=== PATIENT | male | born 1970 | race Caucasian/White ===

== ENCOUNTER 2024-05-14 19:29 | Inpatient (IN) | payer BC, SELFPAY ==
[2024-05-14] VITALS (10 sets, daily range): BP systolic 143–196; BP diastolic 78–112; PULSE 59–89; RESP 18–20; TEMP 36.9; O2SAT 97–100; BMI 38.2
--- NOTE | ~2024-05-14 | XR_ITS ---
CHEST RADIOGRAPH, PA AND LATERAL CLINICAL HISTORY: chest pain . COMPARISON: None available TECHNIQUE: PA and lateral views of the chest. FINDINGS The cardiomediastinal silhouette is unremarkable. The lungs are clear. Visualized osseous structures and soft tissues are unremarkable. IMPRESSION: No focal infiltrate or effusion. Reviewed, dictated and finalized at location A.
--- NOTE | 2024-05-14 19:38 | ECG_ITS ---
Test Date: 2024-05-14 19:35:04 Measurements Intervals [place] Rate: 76 P: 20 MN: 164 QRS: -32 QRSD: 98 T: 52 QT: 367 QTc: 413 Interpretive Statements SINUS RHYTHM LEFT AXIS DEVIATION [QRS AXIS < -30] MODERATE ST DEPRESSION [0.05+ mV ST DEPRESSION] ABNORMAL ECG No previous ECG available for comparison Electronically Signed On 05-15-2024 12:22:13 CDT by Shaheen Bobby M.D.
[2024-05-14 19:46] LABS: Basophils Absolute Auto 0.1 K/mm3 (0.0-0.1); Basophils Percent Auto 0.8 % (0.2-1.2); Eosinophils Absolute Auto 0.2 K/mm3 (0-0.3); Eosinophils Percent Auto 1.8 % (0-4.4); Hematocrit 47.8 % (42.0-52.0); Hemoglobin 16.3 g/dL (14.0-18.0); Immature Granulocyte Absolute 0.02 K/mm3 (0.00-0.031); Immature Granulocyte Percent A 0.2 % (0-0.5); Lymphocytes Absolute Auto 2.64 K/mm3 (0.9-3.2); Lymphocytes Percent Auto 30.9 % (18.3-44.2); Mean Corpuscular HGB Conc 34.1 g/dl (32-36); Mean Corpuscular Hemoglobin 27.6 pg (26-34); Monocytes Absolute Auto 0.7 K/mm3 (0.1-0.6); Monocytes Percent Auto 7.6 % (2.6-8.5); Neutrophils Percent Auto 58.7 % (45.5-73.1); Platelet Count Result 211 k/mm3 (150-375); Red Cell Distribution Width 12.1 % (11.5-14.5); White Blood Count 8.5 K/mm3 (4.5-10.0)
[2024-05-14 19:58] LABS: Prothrombin Time 13.3 Seconds (11.1-14.7)
[2024-05-14 19:59] LABS: Partial Thromboplastin Time 26.1 Seconds (22.3-36.8)
[2024-05-14 20:00] LABS: Alanine Aminotransferase 38 U/L (6-50); Albumin Level 4.6 g/dL (3.5-5.1); Alkaline Phosphatase 80 U/L (38-126); Anion Gap 14 mmol/L (4-12); Aspartate Amino Transferase 48 U/L (17-59); Bilirubin,Total 1.1 mg/dL (0.2-1.3); Blood Urea Nitrogen 23 mg/dL (9-20); Calcium 9.9 mg/dL (8.4-10.2); Carbon Dioxide 21 mmol/L (22-30); Chloride 102 mmol/L (98-107); Estimated CRCL calculation 91 ml/min; Estimated Glomerular Filt Rate > 60; Glucose 152 mg/dL (65-110); Lipase 249 U/L (23-300); Sodium 137 mmol/L (137-145)
--- NOTE | 2024-05-14 20:14 | ED.GENADULT ---
HPI - General Adult General Chief complaint: Chest Pain Stated complaint: CHEST PAIN, HTN Time Seen by Provider: 05/14/24 19:41 History of Present Illness HPI narrative: Patient is a 53-year-old gentleman presents emergency department with chief complaint of chest discomfort. 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 The patient reports no prior history of cardiac disease reports no family history for cardiac disease Related Data Home Medications ?Medication ?Instructions ?Recorded ?Confirmed ?Last Taken ?Type atorvastatin 20 mg tablet mg 05/14/24 Unknown History baclofen 10 mg tablet mg 05/14/24 Unknown History empagliflozin 25 mg tablet mg 05/14/24 Unknown History (Jardiance) losartan 100 mg tablet mg 05/14/24 Unknown History semaglutide 0.25 mg or 0.5 mg (2 mg subcut 05/14/24 Unknown History mg/3 mL) subcutaneous pen injector (Ozempic) Allergies Allergy/AdvReac Type Severity Reaction Status Date / Time SNOW Inhibitors AdvReac Unknown Unknown Verified 05/14/24 20:24 Review of Systems Review of Systems: A 10 system review of systems was completed on the patient and is negative except for what is stated in the HPI. Nursing and ancillary documentation was reviewed. [facility] Past Medical History Medical History (Updated 05/14/24 @ 21:46 by Tami Pritchett DO) Type 2 diabetes mellitus Dyslipidemia Exam Narrative: GENERAL: Well-appearing, well-nourished, and in no acute distress. HEAD: Normocephalic, atraumatic. EYES: PERRLA and EOMI. ENT: Nares clear, no rhinorrhea or epistaxis. Mucous membranes moist. NECK: Supple. CHEST: Clear to auscultation. No respiratory distress. HEART: Regular rate and rhythm. No murmur heard. Normal peripheral pulses. ABDOMEN: Soft, nontender, nondistended, normal active bowel sounds. EXTREMITIES: Normal range of motion. No edema. SKIN: Warm, dry, no rash. NEURO: No focal deficits. Alert and oriented x3. PSYCH: Normal mood and affect. Course Vital Signs Vital signs: Vital Signs Temperature 36.9 C 05/14/24 19:31 Pulse Rate 89 05/14/24 19:31 Respiratory Rate 18 05/14/24 19:31 Blood Pressure 196/112 H 05/14/24 19:31 Pulse Oximetry 98 05/14/24 19:31 Oxygen Delivery Room Air 05/14/24 19:31 Temperature 36.9 C 05/14/24 19:31 Pulse Rate 83 05/14/24 20:51 Respiratory Rate 20 05/14/24 20:51 Blood Pressure 181/98 H 05/14/24 20:51 Pulse Oximetry 98 05/14/24 20:53 Oxygen Delivery Room Air 05/14/24 20:53 Medical Decision Making MDM Narrative Medical decision making narrative: Differential diagnosis includes ACS, noncardiac chest pain, electrolyte abnormality, esophageal spasm, EKG showed some nonspecific changes Initial troponin was 1.990 The patient was given aspirin Prior to arrival by EMS and the patient also was started on heparin drip Vital Signs Vital Signs: Vital Signs Temperature 36.9 C 05/14/24 19:31 Pulse Rate 89 05/14/24 19:31 Respiratory Rate 18 05/14/24 19:31 Blood Pressure 196/112 H 05/14/24 19:31 Pulse Oximetry 98 05/14/24 19:31 Oxygen Delivery Room Air 05/14/24 19:31 Temperature 36.9 C 05/14/24 19:31 Pulse Rate 83 05/14/24 20:51 Respiratory Rate 20 05/14/24 20:51 Blood Pressure 181/98 H 05/14/24 20:51 Pulse Oximetry 98 05/14/24 20:53 Oxygen Delivery Room Air 05/14/24 20:53 Lab Data 05/14/24 19:40 05/14/24 19:40 Labs: Lab Results 05/14/24 Range/Units 19:40 WBC 8.5 (4.5-10.0) K/mm3 RBC 5.90 (4.6-6.20) M/mm3 Hgb 16.3 (14.0-18.0) g/dL Hct 47.8 (42.0-52.0) % MCV 81.0 (80-100) fl MCH 27.6 (26-34) pg MCHC 34.1 (32-36) g/dl RDW 12.1 (11.5-14.5) % Plt Count 211 (150-375) k/mm3 MPV 10.0 (7.4-10.4) fl Immature Gran % (Auto) 0.2 (0-0.5) % Neut % (Auto) 58.7 (45.5-73.1) % Lymph % (Auto) 30.9 (18.3-44.2) % [place] % (Auto) 7.6 (2.6-8.5) % Eos % (Auto) 1.8 (0-4.4) % Baso % (Auto) 0.8 (0.2-1.2) % Lymph # (Auto) 2.64 (0.9-3.2) K/mm3 [place] # (Auto) 0.7 H (0.1-0.6) K/mm3 Eos # (Auto) 0.2 (0-0.3) K/mm3 Baso # (Auto) 0.1 (0.0-0.1) K/mm3 Abs Immat Gran (auto) 0.02 (0.00-0.031) K/mm3 Absolute Neuts (auto) 5.0 (1.3-6.7) K/mm3 Absolute Nucleated RBC 0.000 (0.0-0.012) K/mm3 Nucleated RBC % 0.0 (0.0-0.2) % PT 13.3 (11.1-14.7) Seconds INR 1.0 APTT 26.1 (22.3-36.8) Seconds Sodium 137 (137-145) mmol/L Potassium 4.0 (3.4-5.0) mmol/L Chloride 102 (98-107) mmol/L Carbon Dioxide 21 L (22-30) mmol/L Anion Gap 14 H (4-12) mmol/L BUN 23 H (9-20) mg/dL Creatinine 1.19 (0.7-1.3) mg/dL Estim Creat Clear Calc 91 ml/min Estimated GFR > 60 (59 - ) Glucose 152 H (65-110) mg/dL Calcium 9.9 (8.4-10.2) mg/dL Total Bilirubin 1.1 (0.2-1.3) mg/dL AST 48 (17-59) U/L ALT 38 (6-50) U/L Alkaline Phosphatase 80 (38-126) U/L Troponin I 1.990 H* (0.000-0.034) ng/mL Total Protein 8.0 (6.3-8.2) g/dL Albumin 4.6 (3.5-5.1) g/dL Lipase 249 (23-300) U/L Critical Care Time Critical Care Time Critical Care Time: Yes Total Critical Care Time: 35 Discharge Plan Discharge Clinical Impression: Non-ST elevation SC (NSTEMI) Patient Disposition: Still a Patient Condition: Stable Patient Language: Swedish Prescriptions: No Action atorvastatin 20 mg tablet baclofen 10 mg tablet losartan 100 mg tablet Jardiance 25 mg tablet Ozempic 0.25 mg or 0.5 mg (2 mg/3 mL) pen injector SUBCUT Time of Disposition: 20:20
[2024-05-14] MEDS: HEPARIN SOD/D5W 100 UNITS/ML 25,000 UNITS/250 ML BAG 10 UNITS IV CONT (20:41)
[2024-05-14] MEDS: HEPARIN SODIUM 5,000 UNITS/ML VIAL 4000 UNITS IV PUSH (20:43)
[2024-05-14] MEDS: NITROGLYCERIN SL 0.4 MG TABLET SUBLINGUAL (20:46)
[2024-05-14] MEDS: MORPHINE SULFATE (*CRX) 4 MG/ML INJ IV PUSH (21:39)
[2024-05-14] MEDS: NITROGLYCERIN OINTMENT 1 INCH DOSE TRANSDERM (21:42)
--- NOTE | 2024-05-14 23:49 | ADMGEN ---
This patient, Dickson Barrett, was admitted to IMU Room 214-01. Patient/family oriented to hospital policies and general routines including ID bracelet, bed and alarms, visiting hours, pain management, procedures, bathroom and other care routines, personal items, smoking policy, room service/diet, and visiting hours. Information on how to activate the Rapid Response Team has been discussed. Patient/Family are encouraged to report perceived risks to care and to ask questions if they do not understand what they are told or what they should do.
[2024-05-15] VITALS (35 sets, daily range): BP systolic 106–181; BP diastolic 64–95; PULSE 60–97; RESP 13–20; TEMP 36.6–37; O2SAT 95–100
--- NOTE | 2024-05-15 | ECHO_ITS ---
Patient Info Name: Dickson Barrett Age: 53 years : 1970 Gender: Male Ht: 72 in Wt: 282 lbs BSA: 2.60 m2 HR: 66 bpm BP: 152 / 85 mmHg Heart Rhythm: Sinus Rhythm Technical Quality: Fair Exam Date: 05/15/2024 3:16 PM Exam Location: Echo Lab Patient Status: Inpatient Admit Date: 05/14/2024 Staff Ordering Physician: Shaheen Bobby MD Chiropractic Physician: Ivory Evans RDCS Attending Provider: Tami Pritchett DO Referring Physician: Kanu AHMADI; Exam Type: CA echo dop color flow w con Study Info Indications - Non-STEMI Complete two-dimensional, color flow and Doppler transthoracic echocardiogram is performed with contrast to opacify the left ventricle and to improve the deliniation of the left ventricle endocardial borders. Contrast/Agitated Saline Contrast/Ag. Saline: Definity Amount: 2.00 ml Administered By: Ivory Evans RDCS Existing IV Access: Yes IV Access Condition: patent with no signs of infiltration Summary 1. The left ventricle is normal in size and systolic function. The left ventricular ejection fraction is visually estimated to be 60-65%. The basal inferolateral wall is mildly hypokinetic. 2. The right ventricle is normal in size and systolic function. 3. There are no significant valvular abnormalities. Left Ventricle The left ventricle is normal in size and systolic function. The left ventricular ejection fraction is visually estimated to be 60-65%. The basal inferolateral wall is mildly hypokinetic. Right Ventricle The right ventricle is normal in size and systolic function. Left Atria The left atrium is normal size. Right Atria The right atrium is normal size. Atrial Septum The atrial septum is not well visualized. Aortic Valve The aortic valve is trileaflet and opens well. There is no aortic regurgitation. Pulmonic Valve The pulmonic valve is not visualized. Mitral Valve The mitral valve is normal. There is no mitral regurgitation. Tricuspid Valve The tricuspid is grossly normal. There is trace tricuspid regurgitation. Pericardium/Pleural Pericardium is normal in appearance with no evidence for significant pericardial effusion. Inferior Vena Cava Inferior vena cava is not well visualized. Aorta The aortic root at the level of the sinus of Valsalva measures 3.3 cm in diameter. Left Ventricular Outflow Tract Name Value Normal LVOT 2D LVOT Diameter 2.37 cm LVOT Doppler LVOT Peak Gradient 4 mmHg LVOT Mean Gradient 2 mmHg LVOT VTI 20.02 cm LVOT VTI/AV VTI Ratio 0.82 LVOT Stroke Volume 88.16 ml LVOT CO 5.86 l/min LVOT CI 2.26 L/min/m2 Pulmonic Valve Name Value Normal RVOT Doppler RVOT Peak Gradient 2 mmHg PV Doppler PV Peak Gradient 5 mmHg Mitral Valve Name Value Normal MV Doppler MV Decel [place] 161.54 cm/s2 MV PHT 0 s MV Area (PHT) 2.46 cm2 4.00-5.00 MV Diastolic Function MV E Peak Velocity 49.72 cm/s MV A Peak Velocity 76.07 cm/s MV E/A 0.65 MV Decel Time 0 s MV Annular TDI MV E/e' (Septal) 7.71 <=8.00 MV E/e' (Lateral) 6.94 <=8.00 MV E/e' (Average) 7.33 Tricuspid Valve Name Value Normal TV Regurgitation Doppler TR Peak Velocity 224.74 cm/s TR Peak Gradient 20 mmHg Estimated PAP/RSVP RA Pressure 10 mmHg <=5 PA Systolic Pressure 30 mmHg <36 RV Systolic Pressure 30 mmHg <36 Aorta Name Value Normal Ascending Aorta Ao Root Diameter (MM) 3.77 cm Ao Root Diam Index (MM) 1.45 cm/m2 Aortic Valve Name Value Normal AV Doppler AV Peak Velocity 133.98 cm/s AV Peak Gradient 7 mmHg AV Mean Gradient 4 mmHg AV VTI 24.37 cm AV Area (Cont Eq VTI) 3.62 cm2 >=3.00 AV Area (Cont Eq Abdirizak) 3.18 cm2 AV Regurgitation 2D LVOT Area 4.40 cm2 Ventricles Name Value Normal LV Dimensions 2D/MM IVS Diastolic Thickness (2D) 1.12 cm 0.60-1.00 LVID Diastole (2D) 5.16 cm 4.20-5.80 LVIW Diastolic Thickness (2D) 1.12 cm 0.60-1.00 LVID Systole (2D) 3.47 cm 2.50-4.00 LVOT Diameter 2.37 cm LV Mass (2D Cubed) 223.81 g 88.00-224.00 LV Mass Index (2D Cubed) 0.01 g/cm2 0.00-0.01 Relative Wall Thickness (2D) 0.44 LV Fractional Shortening/Ejection Fraction 2D/MM LV Fractional Shortening (2D) 33 % 25-43 LV EF (2D Teicholz) 61 % 52-72 LV Diastolic Volume (4C MOD) 80.13 ml LV EF (4C MOD) 62 % LV Diastolic Volume (2C MOD) 51.50 ml LV EF (2C MOD) 62 % LV Diastolic Volume (BP MOD) 64.62 ml 62.00-150.00 LV Diastolic Volume Index (BP MOD) 0.02 l/m2 0.03-0.07 LV Systolic Volume (BP MOD) 24.18 ml 21.00-61.00 LV Systolic Volume Index (BP MOD) 0.01 l/m2 0.01-0.03 LV EF (BP MOD) 63 % 52-72 LV Diastolic Length (4C) 8.59 cm LV Systolic Length (4C) 6.82 cm LV Stroke Volume (4C MOD) 49.43 ml Atria Name Value Normal LA Dimensions LA Dimension (MM) 4.00 cm 3.00-4.10 LA Volume (4C A-L) 45.05 ml LA Volume (BP A-L) 44.26 ml RA Dimensions RA Area (4C) 9.45 cm2 <=18.00 Report Signatures
--- NOTE | 2024-05-15 00:30 | P.HP_ITS ---
H&P: HPI History of Present Illness Date/Time: 05/15/24 01:00 Chief Complaint: Chest pain Narrative: 53-year-old male with a past medical history of obesity, type 2 diabetes mellitus, dyslipidemia and essential hypertension who presented to the ER via EMS from a local hotel room that he is staying in due to chest pain. The patient reported that when he woke up and had some pain down his right arm in vague pain across his chest that radiated to his right arm. The pain was initially mild to moderate in nature. He reported that is arm felt heavy. 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 He reports that throughout the day the pain was waxing and waning in nature but never completely resolved. He described the pain as a tightness but denies a sensation of heaviness. Has job then dropped him off at the hotel. At that time he noticed that as he was laying there the pain seemed to be come more intense. The pain is 7/10 in intensity. The patient reports the pain is pressure-like in nature. He denies any prior cardiac history. When EMS arrived at the hotel a patient's blood pressures were in the 180s over 110. The patient reports that when he goes to his doctor's visits usually his blood pressures are initially high. But on repeat checks before he leaves the doctor's office his blood pressures are usually in the 130s to 140s but he can never remember what is diastolic blood pressures are. He reports that his last A1c was little bit high around 8. He reports that his fasting glucoses have been ranging between 130 and 160. He has been trying to be more consistent with checking his glucoses since his last doctor's visit 2 weeks ago. His last lipid panel which was performed within last 2 weeks at a total cholesterol of 247 LDL of 152 HDL of 42 triglycerides of 260 VLDL of 52 cholesterol/HDL of 5.9 and LDL/HDL of 3.6. He has had increased stressors at home. His mother recently of pancreatic cancer. His oldest son is getting ready to join the and his next oldest child is getting radial leave for college. The patient reports that after he had COVID he has subsequently lost about 40 lb. Since he has lost weight he does not snore quite is loudly as he used to. He has a crowded posterior oropharynx but denies ever being tested for obstructive sleep apnea. He denies any complications due to his diabetes such as neuropathy or retinopathy. During the course of my evaluation the patient did acutely become nauseated. However the nausea GERD about the time he had resolution of his chest pain. The patient had initially received nitroglycerin and heparin drip in the ER as well as 1 dose of morphine. This low seemed to have little effect on his pain. He he did have nitropaste place which seemed to help his pain and which significantly improved his blood pressures. Prior to the application of the nitropaste the patient's blood pressures had been ranging between 180s to 190s systolic over 90s to 112 diastolic. At the time my evaluation patient was still initially having pain that was a 2 to 3/10 in intensity but had resolved as I was leaving the room. The patient had received a morphine about an hour prior to my evaluation. The patient did receive a full-dose aspirin in route to the hospital. The patient provides the majority of the history with assistance from his . Patient's condition was discussed with patient's with the patient's permission. All questions were answered. Review of Systems 2 Review of Systems: 12 systems were reviewed with pertinent positives and negatives per HPI. Except as documented in the HPI, all other systems were reviewed and are negative. [facility] Past Medical History Medical History (Updated 05/15/24 @ 07:06 by Tami Pritchett DO) Mixed hyperlipidemia Kidney stones Obesity (BMI 30-39.9) Essential hypertension Type 2 diabetes mellitus Surgical History Surgical History (Updated 05/15/24 @ 06:55 by Tami Pritchett DO) Status post cystoscopy with ureteral stent placement History of tonsillectomy and adenoidectomy Family History Family History Father Diabetes mellitus Mother Cancer of pancreas Social History Social History (Updated 05/15/24 @ 07:00 by Tami Pritchett DO) Social History: The patient lives at home with his and 3 sons in [facility]. He is a lifelong nonsmoker. He rarely drinks alcohol and only in small amounts. He denies any illicit substance use. He works for the [employer]. Code status: Full code Surrogate decision maker: Joyce Barrett () Smoking status: Never smoker Alcohol intake: never Substance use: never Do You Feel Safe in your Home?: Yes Lack of Transportation: No Lack of Food: Never True Current Housing: I Have Housing Concerned About Future Housing: No Difficulty Paying Gas/Electric Bills: No Difficulty Paying for Meds: No Currently Unemployed: No Education: High School Diploma/GED Difficulty w/ Childcare or Family Care: No Spiritual care concerns: No Meds Home Medications and Allergies Home Medications ?Medication ?Instructions ?Recorded ?Confirmed ?Type atorvastatin 20 mg tablet 20 mg PO HS 05/14/24 05/15/24 History baclofen 10 mg tablet 10 mg PO .tid prn 05/14/24 05/15/24 History empagliflozin 25 mg tablet 25 mg PO DAILY 05/14/24 05/15/24 History (Jardiance) losartan 100 mg tablet 100 mg PO DAILY 05/14/24 05/15/24 History semaglutide 0.25 mg or 0.5 mg (2 0.5 mg subcut WEEKLY 05/14/24 05/15/24 History mg/3 mL) subcutaneous pen injector ([employer]) Allergies Allergy/AdvReac Type Severity Reaction Status Date / Time SNOW Inhibitors AdvReac Unknown Unknown Verified 05/14/24 20:24 Vital Signs Vital Signs - 24 hr 05/14/24 19:31 05/14/24 19:37 05/14/24 19:38 Temperature 98.4 F Pulse Rate 89 76 Respiratory Rate 18 Blood Pressure 196/112 H Pulse Oximetry 98 97 Oxygen Delivery Room Air Room Air 05/14/24 20:51 05/14/24 20:53 Temperature Pulse Rate 83 Respiratory Rate 20 Blood Pressure 181/98 H Pulse Oximetry 97 98 Oxygen Delivery Room Air Exam 2 Narrative: Weight 132.5 kg BMI 39.6 Const: Other: Obese, no acute distress, appears stated age HENMT: Other: Mucous membranes are moist, no oral pharyngeal erythema, markedly crowded posterior oropharynx, large tongue, cannot visualize the back of patient's soft palate due to crowding Eyes: Other: Pupils are equal and reactive, mildly injected conjunctiva, no scleral icterus Neck: Other: Large neck circumference, no lymphadenopathy, no JVD Resp: Other: Clear to auscultation bilaterally, no increased work of breathing Cardio: Other: Regular rate, regular rhythm, 2+ bilateral radial pedal pulses GI: Other: Obese, soft, nontender Skin: Other: No jaundice, no pallor Neuro: Other: Alert oriented, speech is clear, no facial asymmetry, no localizing neurologic deficits noted during the course of conversation Extrem: Other: No clubbing, cyanosis or edema Psych: Other: Appropriate mood and affect, pleasant and cooperative, judgment and insight intact H&P: Results Labs Labs: Laboratory Tests 05/14/24 19:40 05/14/24 19:40 05/14/24 19:40 WBC 8.5 RBC 5.90 Hgb 16.3 Hct 47.8 MCV 81.0 MCH 27.6 MCHC 34.1 RDW 12.1 Plt Count 211 MPV 10.0 Immature Gran % (Auto) 0.2 Neut % (Auto) 58.7 Lymph % (Auto) 30.9 [place] % (Auto) 7.6 Eos % (Auto) 1.8 Baso % (Auto) 0.8 Lymph # (Auto) 2.64 [place] # (Auto) 0.7 H Eos # (Auto) 0.2 Baso # (Auto) 0.1 Abs Immat Gran (auto) 0.02 Absolute Neuts (auto) 5.0 Absolute Nucleated RBC 0.000 Nucleated RBC % 0.0 PT 13.3 INR 1.0 APTT 26.1 Sodium 137 Potassium 4.0 Chloride 102 Carbon Dioxide 21 L Anion Gap 14 H BUN 23 H Creatinine 1.19 Estim Creat Clear Calc 91 Estimated GFR > 60 Glucose 152 H Calcium 9.9 Total Bilirubin 1.1 AST 48 ALT 38 Alkaline Phosphatase 80 Troponin I 1.990 H* Total Protein 8.0 Albumin 4.6 Lipase 249 Impressions Chest X-Ray 05/14/24 20:02 IMPRESSION: No focal infiltrate or effusion. EKG: Personally reviewed ST depressions All imaging and EKGs personally reviewed and interpreted. And unless stated otherwise agree with radiologic and cardiology interpretation. Assessment and Plan Assessment and plan (1) Non-ST elevation HI (NSTEMI): Code(s): I21.4 - Non-ST elevation (NSTEMI) myocardial infarction Status: Acute (2) Hypertensive urgency: Code(s): I16.0 - Hypertensive urgency Status: Acute (3) Mixed hyperlipidemia: Code(s): E78.2 - Mixed hyperlipidemia Status: Acute (4) Type 2 diabetes mellitus with hyperglycemia, without long-term current use of insulin: Code(s): E11.65 - Type 2 diabetes mellitus with hyperglycemia Status: Acute Plan Patient presented with non STEMI and hypertensive urgency. Patient's elevated blood pressures were likely in part due to pain from non STEMI. Patient's troponins have continued to trend upward. At the time my evaluation the patient was still having chest pain but had just received a dose of IV morphine. His pain resolved just prior to my leaving the room. I did discuss the potential for transfer in patient's the ICU for nitro drip but given improvement in his pain will hold off on this. Will continue heparin drip per protocol. Will continue patient on nitropaste 1 in q.6 hours. Patient did receive full-dose aspirin in route to hospital. Will place patient on 81 mg aspirin daily. The patient will need high-intensity statin will increase the Lipitor daily. Cardiology has been consulted. Will resume the patient's home losartan. Patient was having some episodes of mild bradycardia so no beta-nallely was administered. Patient does have uncontrolled diabetes with mild hyperglycemia currently. Will continue patient's home Jardiance and will add low-dose sliding scale insulin Accu-Cheks q.6 hours while NPO. Hypoglycemia protocol has been provided. Quality VTE Prophylaxis VTE prophylaxis: pharmacologic ordered (Heparin drip per protocol) Hospitalist MIPS Advance Care Plan I have confirmed that the patient's Advanced Care Plan is present, code status is documented, or surrogate decision maker is listed in patient medical record.: Yes Medication Reconciliation I have utilized all available resources to obtain, update and review the patients current medications (includes all prescriptions, OTC, herbals, cannabis, and nutritional supplements).: Yes
[2024-05-15] MEDS: MORPHINE SULFATE (*CRX) 4 MG/ML INJ IV PUSH ×2 (01:10→10:57)
[2024-05-15 02:03] LABS: Basophils Absolute Auto 0.1 K/mm3 (0.0-0.1); Basophils Percent Auto 0.5 % (0.2-1.2); Eosinophils Absolute Auto 0.1 K/mm3 (0-0.3); Eosinophils Percent Auto 0.8 % (0-4.4); Hematocrit 46.1 % (42.0-52.0); Hemoglobin 15.7 g/dL (14.0-18.0); Immature Granulocyte Absolute 0.02 K/mm3 (0.00-0.031); Immature Granulocyte Percent A 0.2 % (0-0.5); Lymphocytes Absolute Auto 2.08 K/mm3 (0.9-3.2); Lymphocytes Percent Auto 20.4 % (18.3-44.2); Mean Corpuscular HGB Conc 34.1 g/dl (32-36); Mean Corpuscular Hemoglobin 27.7 pg (26-34); Mean Corpuscular Volume 81.3 fl (80-100); Mean Platelet Volume 9.9 fl (7.4-10.4); Monocytes Absolute Auto 0.7 K/mm3 (0.1-0.6); Monocytes Percent Auto 6.7 % (2.6-8.5); Neutrophils Absolute Auto 7.3 K/mm3 (1.3-6.7); Neutrophils Percent Auto 71.4 % (45.5-73.1); Platelet Count Result 197 k/mm3 (150-375); Red Blood Count 5.67 M/mm3 (4.6-6.20); Red Cell Distribution Width 12.2 % (11.5-14.5); White Blood Count 10.2 K/mm3 (4.5-10.0)
--- NOTE | 2024-05-15 02:14 | ECG_ITS ---
Test Date: 2024-05-15 02:23:06 Measurements Intervals [place] Rate: 65 P: 18 MA: 208 QRS: -20 QRSD: 107 T: 44 QT: 413 QTc: 432 Interpretive Statements SINUS RHYTHM LEFTWARD AXIS BORDERLINE ECG Electronically Signed On 05-15-2024 12:25:07 CDT by Shaheen Bobby M.D.
[2024-05-15] MEDS: HEPARIN SODIUM 5,000 UNITS/ML VIAL 4000 UNITS IV PUSH ×2 (03:55→11:10)
[2024-05-15 05:32] LABS: Anion Gap 14 mmol/L (4-12); Blood Urea Nitrogen 20 mg/dL (9-20); Calcium 9.4 mg/dL (8.4-10.2); Carbon Dioxide 21 mmol/L (22-30); Chloride 101 mmol/L (98-107); Estimated CRCL calculation 95 ml/min; Estimated Glomerular Filt Rate > 60; Glucose 154 mg/dL (65-110); Magnesium 1.9 mg/dL (1.6-2.3); Phosphorus 4.5 mg/dL (2.5-4.5); Sodium 136 mmol/L (137-145)
[2024-05-15] MEDS: NITROGLYCERIN OINTMENT 1 INCH DOSE TRANSDERM ×2 (06:52→11:01)
--- NOTE | 2024-05-15 08:57 | P.PNIM_ITS ---
Progress Note: A&P Assessment and Plan (1) Non-ST elevation GA (NSTEMI): Code(s): I21.4 - Non-ST elevation (NSTEMI) myocardial infarction Status: Acute (2) Hypertensive urgency: Code(s): I16.0 - Hypertensive urgency Status: Acute (3) Mixed hyperlipidemia: Code(s): E78.2 - Mixed hyperlipidemia Status: Acute (4) Type 2 diabetes mellitus with hyperglycemia, without long-term current use of insulin: Code(s): E11.65 - Type 2 diabetes mellitus with hyperglycemia Status: Acute Plan 53-year-old male with a past medical history of obesity, type 2 diabetes mellitus, dyslipidemia and essential hypertension who presented to the ER via EMS from a local hotel room that he is staying in due to chest pain. The patient reported that when he woke up and had some pain down his right arm in vague pain across his chest that radiated to his right arm. The pain was initially mild to moderate in nature. He reported that is arm felt heavy. 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 He reports that throughout the day the pain was waxing and waning in nature but never completely resolved. He described the pain as a tightness but denies a sensation of heaviness. Has job then dropped him off at the hotel. At that time he noticed that as he was laying there the pain seemed to be come more intense. The pain is 7/10 in intensity. The patient reports the pain is pressure-like in nature. He denies any prior cardiac history. When EMS arrived at the hotel a patient's blood pressures were in the 180s over 110. The patient reports that when he goes to his doctor's visits usually his blood pressures are initially high. But on repeat checks before he leaves the doctor's office his blood pressures are usually in the 130s to 140s but he can never remember what is diastolic blood pressures are. He reports that his last A1c was little bit high around 8. He reports that his fasting glucoses have been ranging between 130 and 160. He has been trying to be more consistent with checking his glucoses since his last doctor's visit 2 weeks ago. His last lipid panel which was performed within last 2 weeks at a total cholesterol of 247 LDL of 152 HDL of 42 triglycerides of 260 VLDL of 52 cholesterol/HDL of 5.9 and LDL/HDL of 3.6. He has had increased stressors at home. His mother recently of pancreatic cancer. His oldest son is getting ready to join the and his next oldest child is getting radial leave for college. The patient reports that after he had COVID he has subsequently lost about 40 lb. Since he has lost weight he does not snore quite is loudly as he used to. He has a crowded posterior oropharynx but denies ever being tested for obstructive sleep apnea. He denies any complications due to his diabetes such as neuropathy or retinopathy. During the course of my evaluation the patient did acutely become nauseated. However the nausea GERD about the time he had resolution of his chest pain. The patient had initially received nitroglycerin and heparin drip in the ER as well as 1 dose of morphine. This low seemed to have little effect on his pain. He he did have nitropaste place which seemed to help his pain and which significantly improved his blood pressures. Prior to the application of the nitropaste the patient's blood pressures had been ranging between 180s to 190s systolic over 90s to 112 diastolic. The patient did receive a full-dose aspirin in route to the hospital. He was hypertensive in the ED as noted above. Laboratory studies showed WBC of 8.5 hemoglobin of 16.3 came panel was unremarkable. Initial troponin came back elevated at 1.9. Lipase was 249 normal limit. EKG with no ST-T changes noted. Subsequent troponin continue to elevate to 3.5-5 0.1-5.9. Patient has been started on heparin drip for non ST elevation GA. Cardiology has been consulted. Continue on aspirin 81 mg daily also on atorvastatin 80 mg at bedtime. Hypertension: Blood pressure control with losartan 100 mg daily. Type 2 diabetes on Ozempic at home. Currently on sliding scale insulin. DVT prophylaxis-heparin drip Code status Subjective Date/time seen: 05/15/24 08:57 Interval history: Very mild chest discomfort persist. No shortness of breath. No leg swelling. Remains on heparin drip Review of Systems Review of Systems: All systems reviewed & are unremarkable except as noted in HPI and below Exam Narrative: GENERAL: Well-appearing, well-nourished, and in no acute distress. HEAD: Normocephalic, atraumatic. EYES: PERRLA and EOMI. ENT: Nares clear, no rhinorrhea or epistaxis. Mucous membranes moist. NECK: Supple. CHEST: Clear to auscultation. No respiratory distress. HEART: Regular rate and rhythm. No murmur heard. Normal peripheral pulses. ABDOMEN: Soft, nontender, nondistended, normal active bowel sounds. EXTREMITIES: Normal range of motion. No edema. SKIN: Warm, dry, no rash. NEURO: No focal deficits. Alert and oriented x3. PSYCH: Normal mood and affect. Objective Data Vital Signs Vital Signs: Vital Signs - 24 hr 05/14/24 19:31 05/14/24 19:37 05/14/24 19:38 Temperature 98.4 F Pulse Rate 89 76 Respiratory Rate 18 Blood Pressure 196/112 H Pulse Oximetry 98 97 Oxygen Delivery Room Air Room Air Oxygen Flow Rate 05/14/24 20:51 05/14/24 20:53 05/14/24 22:16 Temperature Pulse Rate 83 Respiratory Rate 20 Blood Pressure 181/98 H Pulse Oximetry 97 98 97 Oxygen Delivery Room Air Nasal Cannula Oxygen Flow Rate 2 05/14/24 22:17 05/14/24 23:03 05/14/24 23:28 Temperature Pulse Rate 59 L 71 71 Respiratory Rate 20 20 20 Blood Pressure 186/111 H 156/95 H 156/95 H Pulse Oximetry 98 97 97 Oxygen Delivery Oxygen Flow Rate 05/14/24 23:35 05/15/24 00:00 05/15/24 00:00 Temperature 98.5 F Pulse Rate 69 69 69 Respiratory Rate 20 20 Blood Pressure 143/78 H Pulse Oximetry 100 100 Oxygen Delivery Nasal Cannula Oxygen Flow Rate 2 05/15/24 02:00 05/15/24 04:00 05/15/24 04:00 Temperature Pulse Rate 70 69 69 Respiratory Rate 20 Blood Pressure Pulse Oximetry 100 Oxygen Delivery Nasal Cannula Oxygen Flow Rate 4 05/15/24 04:16 05/15/24 06:00 05/15/24 08:00 Temperature 98.2 F 97.9 F Pulse Rate 68 71 66 Respiratory Rate 20 20 Blood Pressure 146/73 H 152/85 H Pulse Oximetry 95 96 Oxygen Delivery Oxygen Flow Rate Intake/Output Intake/Output: Intake & Output 05/12/24 05/13/24 05/14/24 05/15/24 23:59 23:59 23:59 23:59 Intake Total 72.3 Balance 72.3 Meds/Results Medications: Active Medications Generic Name Dose Route Start Last Admin Trade Name Freq PRN Reason Stop Dose Admin Aspirin 81 mg 05/15/24 08:00 Aspirin 81 Mg Chewable Tablet PO DAILY@0800 [facility] Atorvastatin Calcium 80 mg 05/15/24 21:00 Atorvastatin 40 Mg Tablet PO HS [facility] Baclofen 10 mg 05/15/24 07:10 Baclofen 10 Mg Tablet PO TID PRN PAIN IN THORASIC SPINE Dextrose 12.5 gm 05/15/24 07:07 Dextrose 50% 25 Gm/50 Ml Syringe IV PUSH PRN PRN Hypoglycemia Protocol Empagliflozin 25 mg 05/15/24 09:00 Empagliflozin 25 Mg Tablet PO DAILY [facility] Glucagon 1 mg 05/15/24 07:07 Glucagon For Inj 1 Mg Vial IM PRN PRN Hypoglycemia Protocol Glucose 15 gm 05/15/24 07:07 Glucose Oral Gel 15 Gm Of Glucse In 37.5 Gm Tube PO PRN PRN Hypoglycemia Protocol Heparin Sodium (Porcine) 4,000 units 05/14/24 20:10 05/15/24 03:55 Heparin Sodium 5,000 Units/Ml Vial IV PUSH 4,000 units PRN PRN Administration aPTT less than 55 seconds Heparin Sodium (Porcine) 4,000 units 05/14/24 20:10 Heparin Sodium 5,000 Units/Ml Vial IV PUSH PRN PRN aPTT 55 - 70 seconds Heparin Sodium/Dextrose 25,000 units in 250 mls @ 14 mls/hr 05/14/24 20:10 05/15/24 03:55 Heparin Sodium/D5w 100 Units/Ml IV CONT 1,400 units/hr .[id number] [facility] 14 mls/hr Titration Protocol 1,400 UNITS/HR Dextrose 1,000 mls @ 100 mls/hr 05/15/24 07:07 Dextrose 5% 1,000 Ml IVPB PRN PRN Hypoglycemia Protocol Insulin Aspart 2 - 5 units 05/15/24 12:00 Insulin Aspart (*Bkc) 100 Units/Ml SUB-Q Q6HR [facility] Protocol Losartan Potassium 100 mg 05/15/24 09:00 Losartan Potassium 100 Mg Tablet PO DAILY [facility] Morphine Sulfate 4 mg 05/14/24 21:59 Morphine Sulfate (*Crx) 4 Mg/Ml Inj IV PUSH Q2H PRN Pain Rated 7-10 Nitroglycerin 1 inch 05/15/24 00:00 05/15/24 06:52 Nitroglycerin Ointment 1 Inch Dose TRANSDERM 1 inch Q6HR [place] Administration Ondansetron HCl 4 mg 05/14/24 21:59 Ondansetron Inj 4 Mg/2 Ml Vial IV PUSH Q4H PRN Nausea Radiology Results: ITS Impressions Chest X-Ray 05/14/24 20:02 IMPRESSION: No focal infiltrate or effusion. Labs Labs: Laboratory Results - last 24 hr 05/14/24 05/14/24 05/15/24 19:40 23:00 01:55 WBC 8.5 10.2 H RBC 5.90 5.67 Hgb 16.3 15.7 Hct 47.8 46.1 MCV 81.0 81.3 MCH 27.6 27.7 MCHC 34.1 34.1 RDW 12.1 12.2 Plt Count 211 197 MPV 10.0 9.9 Immature Gran % (Auto) 0.2 0.2 Neut % (Auto) 58.7 71.4 Lymph % (Auto) 30.9 20.4 [place] % (Auto) 7.6 6.7 Eos % (Auto) 1.8 0.8 Baso % (Auto) 0.8 0.5 Lymph # (Auto) 2.64 2.08 [place] # (Auto) 0.7 H 0.7 H Eos # (Auto) 0.2 0.1 Baso # (Auto) 0.1 0.1 Abs Immat Gran (auto) 0.02 0.02 Absolute Neuts (auto) 5.0 7.3 H Absolute Nucleated RBC 0.000 0.000 Nucleated RBC % 0.0 0.0 PT 13.3 INR 1.0 APTT 26.1 43.0 H Sodium 137 Potassium 4.0 Chloride 102 Carbon Dioxide 21 L Anion Gap 14 H BUN 23 H Creatinine 1.19 Estim Creat Clear Calc 91 Estimated GFR > 60 Glucose 152 H Calcium 9.9 Phosphorus Magnesium Total Bilirubin 1.1 AST 48 ALT 38 Alkaline Phosphatase 80 Troponin I 1.990 H* 3.570 H* D 5.150 H* D Total Protein 8.0 Albumin 4.6 Lipase 249 05/15/24 05:14 WBC RBC Hgb Hct MCV MCH MCHC RDW Plt Count MPV Immature Gran % (Auto) Neut % (Auto) Lymph % (Auto) [place] % (Auto) Eos % (Auto) Baso % (Auto) Lymph # (Auto) [place] # (Auto) Eos # (Auto) Baso # (Auto) Abs Immat Gran (auto) Absolute Neuts (auto) Absolute Nucleated RBC Nucleated RBC % PT INR APTT Sodium 136 L Potassium 4.0 Chloride 101 Carbon Dioxide 21 L Anion Gap 14 H BUN 20 Creatinine 1.12 Estim Creat Clear Calc 95 Estimated GFR > 60 Glucose 154 H Calcium 9.4 Phosphorus 4.5 Magnesium 1.9 Total Bilirubin AST ALT Alkaline Phosphatase Troponin I 5.920 H* Total Protein Albumin Lipase
[2024-05-15] MEDS: ASPIRIN 81 MG CHEWABLE TABLET PO (09:06)
[2024-05-15] MEDS: EMPAGLIFLOZIN 25 MG TABLET PO (09:06)
[2024-05-15] MEDS: LOSARTAN POTASSIUM 100 MG TABLET PO (09:06)
[2024-05-15] MEDS: ONDANSETRON INJ 4 MG/2 ML VIAL IV PUSH (09:26)
--- NOTE | 2024-05-15 09:55 | P.CONCA_ITS ---
Assessment and Plan Assessment and plan (1) Non-ST elevation ID (NSTEMI): Code(s): I21.4 - Non-ST elevation (NSTEMI) myocardial infarction Status: Acute Assessment and Plan: Continue heparin drip. Continue aspirin, high-dose atorvastatin, losartan, nitroglycerin. Keep NPO for coronary angiogram with Dr. Enriquez. Metoprolol will be started 25 mg p.o. b.i.d. will order 2D echocardiogram Doppler also (2) Hypertensive urgency: Code(s): I16.0 - Hypertensive urgency Status: Acute Assessment and Plan: Continue above meds. BP this morning is better controlled (3) Mixed hyperlipidemia: Code(s): E78.2 - Mixed hyperlipidemia Status: Acute Assessment and Plan: Continue high-dose atorvastatin (4) Type 2 diabetes mellitus with hyperglycemia, without long-term current use of insulin: Code(s): E11.65 - Type 2 diabetes mellitus with hyperglycemia Status: Acute Assessment and Plan: Per hospitalist History of Present Illness History of Present Illness Consult date/time: 05/15/24 09:55 Requesting physician: Isaac Batista MD Consult reason: chest pain Reason For Visit: NSTEMI, chest pain Narrative: 53-year-old without known coronary disease but with risk factors including high blood pressure, dyslipidemia, diabetes, obesity who presented to the hospital after calling EMS because of chest pain. Patient states that he golfed 2 days ago and walked 9 holes. He felt very tired after his round of golf. His degree of tiredness was out of proportion to his norm. He got up yesterday to go to work. 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 He also had some tingling/achiness involving his right arm. He took some Tums without significant benefit. He does not normally have heartburn. He did feel like he needed to take a big breath at times. His symptoms waxed and waned throughout the day but not completely resolved. He lives in [facility] and was staying in a hotel locally. His pain worsened to a level of 7 or 8/10 yesterday evening while at the hotel and he decided that point to call 911. He came to the hospital and initial troponins were 1.9. He was started on heparin, nitroglycerin, aspirin, morphine. Home meds were also continued. He states that his pain did improve and at this point it is essentially gone with some ill described discomfort that is significantly improved. Troponins are peaking at a level of 5.9. He denies any recent syncope, presyncope, paroxysmal nocturnal dyspnea, orthopnea PND edema or palpitations. Review of Systems 2 Review of Systems: All systems reviewed & are unremarkable except as noted in HPI and below Constitutional: Constitutional: Denies body ache(s) Eyes: Eyes: Denies blurry vision ENT: Reports Normal hearing present Cardiovascular: Cardiovascular: Reports chest pain Respiratory: Respiratory: Denies hemoptysis Gastrointestinal: Gastrointestinal: Denies abdominal pain Genitourinary: Genitourinary: Denies hematuria Musculoskeletal: Musculoskeletal: Denies back pain Integumentary/Breasts: Skin/Breast: Denies dry skin Neurologic: Denies Abnormal speech present Psychiatric: Psychiatric: Denies anxiety Endocrine: Endocrine: Denies excessive sweating Hematologic/Lymphatic: Hematologic/Lymphatic: Denies easy bleeding Allergic/Immunologic: Allergic/Immunologic: Denies GI upset with certain foods PMFSH Past Medical History Medical History (Updated 05/15/24 @ 07:06 by Tami Pritchett DO) Mixed hyperlipidemia Kidney stones Obesity (BMI 30-39.9) Essential hypertension Type 2 diabetes mellitus Surgical History Surgical History (Updated 05/15/24 @ 06:55 by Tami Pritchett DO) Status post cystoscopy with ureteral stent placement History of tonsillectomy and adenoidectomy Family History Family History Father Diabetes mellitus Mother Cancer of pancreas Social History Social History (Updated 05/15/24 @ 07:00 by Tami Pritchett DO) Social History: The patient lives at home with his and 3 sons in [facility]. He is a lifelong nonsmoker. He rarely drinks alcohol and only in small amounts. He denies any illicit substance use. He works for the [employer]. Code status: Full code Surrogate decision maker: Joyce Barrett () Smoking status: Never smoker Alcohol intake: never Substance use: never Do You Feel Safe in your Home?: Yes Lack of Transportation: No Lack of Food: Never True Current Housing: I Have Housing Concerned About Future Housing: No Difficulty Paying Gas/Electric Bills: No Difficulty Paying for Meds: No Currently Unemployed: No Education: High School Diploma/GED Difficulty w/ Childcare or Family Care: No Spiritual care concerns: No Meds Home Medications and Allergies Home Medications ?Medication ?Instructions ?Recorded ?Confirmed ?Type atorvastatin 20 mg tablet 20 mg PO HS 05/14/24 05/15/24 History baclofen 10 mg tablet 10 mg PO .tid prn 05/14/24 05/15/24 History empagliflozin 25 mg tablet 25 mg PO DAILY 05/14/24 05/15/24 History (Jardiance) losartan 100 mg tablet 100 mg PO DAILY 05/14/24 05/15/24 History semaglutide 0.25 mg or 0.5 mg (2 0.5 mg subcut WEEKLY 05/14/24 05/15/24 History mg/3 mL) subcutaneous pen injector (Ozempic) Allergies Allergy/AdvReac Type Severity Reaction Status Date / Time SNOW Inhibitors AdvReac Unknown Unknown Verified 05/14/24 20:24 Vital Signs Vital Signs - 24 hr 05/14/24 19:31 05/14/24 19:37 05/14/24 19:38 Temperature 36.9 C Pulse Rate 89 76 Respiratory Rate 18 Blood Pressure 196/112 H Pulse Oximetry 98 97 Oxygen Delivery Room Air Room Air Oxygen Flow Rate 05/14/24 20:51 05/14/24 20:53 05/14/24 22:16 Temperature Pulse Rate 83 Respiratory Rate 20 Blood Pressure 181/98 H Pulse Oximetry 97 98 97 Oxygen Delivery Room Air Nasal Cannula Oxygen Flow Rate 2 05/14/24 22:17 05/14/24 23:03 05/14/24 23:28 Temperature Pulse Rate 59 L 71 71 Respiratory Rate 20 20 20 Blood Pressure 186/111 H 156/95 H 156/95 H Pulse Oximetry 98 97 97 Oxygen Delivery Oxygen Flow Rate 05/14/24 23:35 05/15/24 00:00 05/15/24 00:00 Temperature 36.9 C Pulse Rate 69 69 69 Respiratory Rate 20 20 Blood Pressure 143/78 H Pulse Oximetry 100 100 Oxygen Delivery Nasal Cannula Oxygen Flow Rate 2 05/15/24 02:00 05/15/24 04:00 05/15/24 04:00 Temperature Pulse Rate 70 69 69 Respiratory Rate 20 Blood Pressure Pulse Oximetry 100 Oxygen Delivery Nasal Cannula Oxygen Flow Rate 4 05/15/24 04:16 05/15/24 06:00 05/15/24 08:00 Temperature 36.8 C 36.6 C Pulse Rate 68 71 66 Respiratory Rate 20 20 Blood Pressure 146/73 H 152/85 H Pulse Oximetry 95 96 Oxygen Delivery Oxygen Flow Rate 05/15/24 09:16 Temperature Pulse Rate Respiratory Rate Blood Pressure Pulse Oximetry 97 Oxygen Delivery Room Air Oxygen Flow Rate Exam 2 Narrative: Alert oriented. Appears stated age Const: General: comfortable and no acute distress HENMT: Face/Nose/Sinus: Normal nares present Mouth: Yes moist mucous membranes Eyes: General: appearance normal, both eyes and all related structures S clera: sclerae normal Neck: Neck: supple and no JVD Chest: Other: No reproducible chest wall pain to palpation Resp: Effort & Inspection: normal respiratory effort Auscultation: clear to auscultation bilaterally Cardio: Rate: regular rate Rhythm: regular rhythm Heart sounds: no murmurs GI: Inspection: non-distended GI Palp: Yes Soft to palpation A uscultation: normal bowel sounds Skin: General skin exam: normal color and no rashes or lesions noted Neuro: General: gait normal Speech: normal speech Extrem: General: normal to inspection and no edema Psych: Mental Status: mental status grossly normal Affect: normal affect Results Labs and Meds 05/15/24 01:55 05/15/24 05:14 Lab results: Cardiac Enzymes 05/14/24 05/14/24 05/15/24 Range/Units 19:40 23:00 01:55 AST 48 (17-59) U/L Troponin I 1.990 H* 3.570 H* D 5.150 H* D (0.000-0.034) ng/mL 05/15/24 Range/Units 05:14 AST (17-59) U/L Troponin I 5.920 H* (0.000-0.034) ng/mL Coagulation 05/14/24 05/15/24 Range/Units 19:40 01:55 PT 13.3 (11.1-14.7) Seconds APTT 26.1 43.0 H (22.3-36.8) Seconds CBC 05/14/24 05/15/24 Range/Units 19:40 01:55 WBC 8.5 10.2 H (4.5-10.0) K/mm3 RBC 5.90 5.67 (4.6-6.20) M/mm3 Hgb 16.3 15.7 (14.0-18.0) g/dL Hct 47.8 46.1 (42.0-52.0) % Plt Count 211 197 (150-375) k/mm3 Lymph # (Auto) 2.64 2.08 (0.9-3.2) K/mm3 [place] # (Auto) 0.7 H 0.7 H (0.1-0.6) K/mm3 Eos # (Auto) 0.2 0.1 (0-0.3) K/mm3 Baso # (Auto) 0.1 0.1 (0.0-0.1) K/mm3 Comprehensive Metabolic Panel 05/14/24 05/15/24 Range/Units 19:40 05:14 Sodium 137 136 L (137-145) mmol/L Potassium 4.0 4.0 (3.4-5.0) mmol/L Chloride 102 101 (98-107) mmol/L Carbon Dioxide 21 L 21 L (22-30) mmol/L BUN 23 H 20 (9-20) mg/dL Creatinine 1.19 1.12 (0.7-1.3) mg/dL Glucose 152 H 154 H (65-110) mg/dL Calcium 9.9 9.4 (8.4-10.2) mg/dL AST 48 (17-59) U/L ALT 38 (6-50) U/L Alkaline Phosphatase 80 (38-126) U/L Total Protein 8.0 (6.3-8.2) g/dL Albumin 4.6 (3.5-5.1) g/dL Intake and Output 05/14/24 05/15/24 05/15/24 23:59 07:59 15:59 Intake Total 72.3 Balance 72.3 Intake: IV 72.3 Heparin Sod/D5w 100 Units/ml 25 72.3 ,000 units In 250 ml @ 1,000 UNITS/HR 10 mls/hr IV CONT . Q24H [facility] Rx#:[id number] Patient Weight 05/15/24 23:59 Weight 128.1 kg EKG is personally reviewed and independently interpreted. Initial EKG shows sinus rhythm. Slight ST segment depression V1 V2, borderline for acute posterior injury. Follow-up EKG showed resolution of the ST abnormality and are normal
[2024-05-15 10:15] LABS: Partial Thromboplastin Time 69.5 Seconds (22.3-36.8)
--- NOTE | 2024-05-15 10:30 | PC.NURSE ---
Complaints of heart pounding , chest pressure/tightness rated 5/10. Denies nausea or SOB. Dr. Bobby at bedside. New orders for stat EKG. Advised to give Morphine and apply scheduled Nitro.
--- NOTE | 2024-05-15 10:53 | ECG_ITS ---
Test Date: 2024-05-15 10:59:49 Measurements Intervals [place] Rate: 72 P: 19 MT: 192 QRS: -22 QRSD: 109 T: 45 QT: 389 QTc: 428 Interpretive Statements SINUS RHYTHM BORDERLINE LEFT AXIS DEVIATION [QRS AXIS < -20] NONSPECIFIC T-WAVE ABNORMALITY ABNORMAL ECG Electronically Signed On 05-15-2024 12:54:16 CDT by Shaheen Bobby M.D.
[2024-05-15 12:06] LABS: Glucose Point of Care 150 mg/dl (65-105)
--- NOTE | 2024-05-15 12:27 | P.SEDATION_ITS ---
Moderate Sedation Note-Pt Data Patient Data Diagnosis: NSTEMI Present Complaint: NSTEMI Procedure to be performed/Plan: Coronary angiography, left heart cath, +/- PCI Allergies Allergy/AdvReac Type Severity Reaction Status Date / Time SNOW Inhibitors AdvReac Unknown Unknown Verified 05/14/24 20:24 Home Medications ?Medication ?Instructions ?Recorded ?Confirmed ?Type atorvastatin 20 mg tablet 20 mg PO HS 05/14/24 05/15/24 History baclofen 10 mg tablet 10 mg PO .tid prn 05/14/24 05/15/24 History empagliflozin 25 mg tablet 25 mg PO DAILY 05/14/24 05/15/24 History (Jardiance) losartan 100 mg tablet 100 mg PO DAILY 05/14/24 05/15/24 History semaglutide 0.25 mg or 0.5 mg (2 0.5 mg subcut WEEKLY 05/14/24 05/15/24 History mg/3 mL) subcutaneous pen injector ([employer] Current Medications: Active Medications Aspirin (Aspirin 81 Mg Chewable Tablet) 81 mg PO DAILY@0800 [facility] Last Admin: 05/15/24 09:06 Dose: 81 mg Atorvastatin Calcium (Atorvastatin 40 Mg Tablet) 80 mg PO [facility] Baclofen (Baclofen 10 Mg Tablet) 10 mg PO TID PRN PRN Reason: PAIN IN THORASIC SPINE Dextrose (Dextrose 50% 25 Gm/50 Ml Syringe) 12.5 gm IV PUSH PRN PRN; Protocol PRN Reason: Hypoglycemia Empagliflozin (Empagliflozin 25 Mg Tablet) 25 mg PO DAILY [facility] Last Admin: 05/15/24 09:06 Dose: 25 mg Glucagon (Glucagon For Inj 1 Mg Vial) 1 mg IM PRN PRN; Protocol PRN Reason: Hypoglycemia Glucose (Glucose Oral Gel 15 Gm Of Glucse In 37.5 Gm Tube) 15 gm PO PRN PRN; Protocol PRN Reason: Hypoglycemia Heparin Sodium (Porcine) (Heparin Sodium 5,000 Units/Ml Vial) 4,000 units IV PUSH PRN PRN PRN Reason: aPTT less than 55 seconds Last Admin: 05/15/24 03:55 Dose: 4,000 units Heparin Sodium (Porcine) (Heparin Sodium 5,000 Units/Ml Vial) 4,000 units IV PUSH PRN PRN PRN Reason: aPTT 55 - 70 seconds Last Admin: 05/15/24 11:10 Dose: 4,000 units Heparin Sodium/Dextrose (Heparin Sodium/D5w 100 Units/Ml) 25,000 units in 250 mls @ 14 mls/hr IV CONT .[id number] [place]; Protocol Last Titration: 05/15/24 11:12 Dose: 1,600 units/hr, 16 mls/hr Dextrose (Dextrose 5% 1,000 Ml) 1,000 mls @ 100 mls/hr IVPB PRN PRN; Protocol PRN Reason: Hypoglycemia Insulin Aspart (Insulin Aspart (*Bkc) 100 Units/Ml) 2 - 5 units SUB-Q Q6HR [place]; Protocol Losartan Potassium (Losartan Potassium 100 Mg Tablet) 100 mg PO DAILY [place] Last Admin: 05/15/24 09:06 Dose: 100 mg Metoprolol Tartrate (Metoprolol Tartrate 25 Mg Tablet) 25 mg PO Q12HR [place] Morphine Sulfate (Morphine Sulfate (*Crx) 4 Mg/Ml Inj) 4 mg IV PUSH Q2H PRN PRN Reason: Pain Rated 7-10 Last Admin: 05/15/24 10:57 Dose: 4 mg Nitroglycerin (Nitroglycerin Ointment 1 Inch Dose) 1 inch TRANSDERM Q6HR [place] Last Admin: 05/15/24 11:01 Dose: 1 inch Ondansetron HCl (Ondansetron Inj 4 Mg/2 Ml Vial) 4 mg IV PUSH Q4H PRN PRN Reason: Nausea Last Admin: 05/15/24 09:26 Dose: 4 mg Perflutren Lipid Microsphere (Perflutren Lipid Microspheres 1.5 Ml Vial Diluted To 10 Ml Total Volume) 0 ml IV PUSH ONCE PRN; Protocol PRN Reason: adequate visualization Stop: 05/18/24 09:54 Sedation/Anesthesia: No previous sedation/anesthesia problems (including family history). [facility] Past Medical History Medical History Mixed hyperlipidemia Kidney stones Obesity (BMI 30-39.9) Essential hypertension Type 2 diabetes mellitus Surgical History Surgical History Status post cystoscopy with ureteral stent placement History of tonsillectomy and adenoidectomy Family History Family History Father Diabetes mellitus Mother Cancer of pancreas Social History Social History Social History: The patient lives at home with his and 3 sons in [facility]. He is a lifelong nonsmoker. He rarely drinks alcohol and only in small amounts. He denies any illicit substance use. He works for the [employer] Code status: Full code Surrogate decision maker: Joyce Barrett () Smoking status: Never smoker Alcohol intake: never Substance use: never Do You Feel Safe in your Home?: Yes Lack of Transportation: No Lack of Food: Never True Current Housing: I Have Housing Concerned About Future Housing: No Difficulty Paying Gas/Electric Bills: No Difficulty Paying for Meds: No Currently Unemployed: No Education: High School Diploma/GED Difficulty w/ Childcare or Family Care: No Spiritual care concerns: No Mod Sed Physical Exam Physical Exam Pre Procedural Exam: Normal: Appearance, Lungs, Heart Rate, Heart Rhythm, Neuro Exam, Extremities and Skin Hours since solid foods: 12 Hours since liquid intake: 8 Mallampati Classification: class III Internal Medicine - PN: Obj Da Vital Signs Vital Signs: Vital Signs - 24 hr 05/14/24 19:31 05/14/24 19:37 05/14/24 19:38 Temperature 36.9 C Pulse Rate 89 76 Respiratory Rate 18 Blood Pressure 196/112 H Pulse Oximetry 98 97 Oxygen Delivery Room Air Room Air Oxygen Flow Rate 05/14/24 20:51 05/14/24 20:53 05/14/24 22:16 Temperature Pulse Rate 83 Respiratory Rate 20 Blood Pressure 181/98 H Pulse Oximetry 97 98 97 Oxygen Delivery Room Air Nasal Cannula Oxygen Flow Rate 2 05/14/24 22:17 05/14/24 23:03 05/14/24 23:28 Temperature Pulse Rate 59 L 71 71 Respiratory Rate 20 20 20 Blood Pressure 186/111 H 156/95 H 156/95 H Pulse Oximetry 98 97 97 Oxygen Delivery Oxygen Flow Rate 05/14/24 23:35 05/15/24 00:00 05/15/24 00:00 Temperature 36.9 C Pulse Rate 69 69 69 Respiratory Rate 20 20 Blood Pressure 143/78 H Pulse Oximetry 100 100 Oxygen Delivery Nasal Cannula Oxygen Flow Rate 2 05/15/24 02:00 05/15/24 04:00 05/15/24 04:00 Temperature Pulse Rate 70 69 69 Respiratory Rate 20 Blood Pressure Pulse Oximetry 100 Oxygen Delivery Nasal Cannula Oxygen Flow Rate 4 05/15/24 04:16 05/15/24 06:00 05/15/24 08:00 Temperature 36.8 C 36.6 C Pulse Rate 68 71 66 Respiratory Rate 20 20 Blood Pressure 146/73 H 152/85 H Pulse Oximetry 95 96 Oxygen Delivery Oxygen Flow Rate 05/15/24 09:16 05/15/24 11:56 Temperature 36.8 C Pulse Rate 82 Respiratory Rate 20 Blood Pressure 146/78 H Pulse Oximetry 97 97 Oxygen Delivery Room Air Oxygen Flow Rate Intake/Output Intake/Output: Intake & Output 05/12/24 05/13/24 05/14/24 05/15/24 23:59 23:59 23:59 23:59 Intake Total 174.3 Balance 174.3 Meds/Results Medications: Active Medications Generic Name Dose Route Start Last Admin Trade Name Freq PRN Reason Stop Dose Admin Aspirin 81 mg 05/15/24 08:00 05/15/24 09:06 Aspirin 81 Mg Chewable Tablet PO 81 mg DAILY@0800 [place] Administration Atorvastatin Calcium 80 mg 05/15/24 21:00 Atorvastatin 40 Mg Tablet PO HS [place] Baclofen 10 mg 05/15/24 07:10 Baclofen 10 Mg Tablet PO TID PRN PAIN IN THORASIC SPINE Dextrose 12.5 gm 05/15/24 07:07 Dextrose 50% 25 Gm/50 Ml Syringe IV PUSH PRN PRN Hypoglycemia Protocol Empagliflozin 25 mg 05/15/24 09:00 05/15/24 09:06 Empagliflozin 25 Mg Tablet PO 25 mg DAILY [place] Administration Glucagon 1 mg 05/15/24 07:07 Glucagon For Inj 1 Mg Vial IM PRN PRN Hypoglycemia Protocol Glucose 15 gm 05/15/24 07:07 Glucose Oral Gel 15 Gm Of Glucse In 37.5 Gm Tube PO PRN PRN Hypoglycemia Protocol Heparin Sodium (Porcine) 4,000 units 05/14/24 20:10 05/15/24 03:55 Heparin Sodium 5,000 Units/Ml Vial IV PUSH 4,000 units PRN PRN Administration aPTT less than 55 seconds Heparin Sodium (Porcine) 4,000 units 05/14/24 20:10 05/15/24 11:10 Heparin Sodium 5,000 Units/Ml Vial IV PUSH 4,000 units PRN PRN Administration aPTT 55 - 70 seconds Heparin Sodium/Dextrose 25,000 units in 250 mls @ 14 mls/hr 05/14/24 20:10 05/15/24 11:12 Heparin Sodium/D5w 100 Units/Ml IV CONT 1,600 units/hr .[id number] [place] 16 mls/hr Titration Protocol 1,400 UNITS/HR Dextrose 1,000 mls @ 100 mls/hr 05/15/24 07:07 Dextrose 5% 1,000 Ml IVPB PRN PRN Hypoglycemia Protocol Insulin Aspart 2 - 5 units 05/15/24 12:00 Insulin Aspart (*Bkc) 100 Units/Ml SUB-Q Q6HR [place] Protocol Losartan Potassium 100 mg 05/15/24 09:00 05/15/24 09:06 Losartan Potassium 100 Mg Tablet PO 100 mg DAILY [place] Administration Metoprolol Tartrate 25 mg 05/15/24 10:10 Metoprolol Tartrate 25 Mg Tablet PO Q12HR [place] Morphine Sulfate 4 mg 05/14/24 21:59 05/15/24 10:57 Morphine Sulfate (*Crx) 4 Mg/Ml Inj IV PUSH 4 mg Q2H PRN Administration Pain Rated 7-10 Nitroglycerin 1 inch 05/15/24 00:00 05/15/24 11:01 Nitroglycerin Ointment 1 Inch Dose TRANSDERM 1 inch Q6HR [place] Administration Ondansetron HCl 4 mg 05/14/24 21:59 05/15/24 09:26 Ondansetron Inj 4 Mg/2 Ml Vial IV PUSH 4 mg Q4H PRN Administration Nausea Perflutren Lipid Microsphere 0 ml 05/15/24 09:54 Perflutren Lipid Microspheres 1.5 Ml Vial Diluted To 10 Ml Total Volume IV PUSH 05/18/24 09:54 ONCE PRN adequate visualization Protocol Radiology Results: ITS Impressions Chest X-Ray 05/14/24 20:02 IMPRESSION: No focal infiltrate or effusion. Labs 05/15/24 01:55 05/15/24 05:14 Labs: Laboratory Results - last 24 hr 05/14/24 05/14/24 05/15/24 19:40 23:00 01:55 WBC 8.5 10.2 H RBC 5.90 5.67 Hgb 16.3 15.7 Hct 47.8 46.1 MCV 81.0 81.3 MCH 27.6 27.7 MCHC 34.1 34.1 RDW 12.1 12.2 Plt Count 211 197 MPV 10.0 9.9 Immature Gran % (Auto) 0.2 0.2 Neut % (Auto) 58.7 71.4 Lymph % (Auto) 30.9 20.4 Phelps % (Auto) 7.6 6.7 Eos % (Auto) 1.8 0.8 Baso % (Auto) 0.8 0.5 Lymph # (Auto) 2.64 2.08 Phelps # (Auto) 0.7 H 0.7 H Eos # (Auto) 0.2 0.1 Baso # (Auto) 0.1 0.1 Abs Immat Gran (auto) 0.02 0.02 Absolute Neuts (auto) 5.0 7.3 H Absolute Nucleated RBC 0.000 0.000 Nucleated RBC % 0.0 0.0 PT 13.3 INR 1.0 APTT 26.1 43.0 H Sodium 137 Potassium 4.0 Chloride 102 Carbon Dioxide 21 L Anion Gap 14 H BUN 23 H Creatinine 1.19 Estim Creat Clear Calc 91 Estimated GFR > 60 Glucose 152 H POC Capillary Glucose Calcium 9.9 Phosphorus Magnesium Total Bilirubin 1.1 AST 48 ALT 38 Alkaline Phosphatase 80 Troponin I 1.990 H* 3.570 H* D 5.150 H* D Total Protein 8.0 Albumin 4.6 Lipase 249 05/15/24 05/15/24 05/15/24 05:14 09:52 11:59 WBC RBC Hgb Hct MCV MCH MCHC RDW Plt Count MPV Immature Gran % (Auto) Neut % (Auto) Lymph % (Auto) Phelps % (Auto) Eos % (Auto) Baso % (Auto) Lymph # (Auto) Phelps # (Auto) Eos # (Auto) Baso # (Auto) Abs Immat Gran (auto) Absolute Neuts (auto) Absolute Nucleated RBC Nucleated RBC % PT INR APTT 69.5 H Sodium 136 L Potassium 4.0 Chloride 101 Carbon Dioxide 21 L Anion Gap 14 H BUN 20 Creatinine 1.12 Estim Creat Clear Calc 95 Estimated GFR > 60 Glucose 154 H POC Capillary Glucose 150 H Calcium 9.4 Phosphorus 4.5 Magnesium 1.9 Total Bilirubin AST ALT Alkaline Phosphatase Troponin I 5.920 H* Total Protein Albumin Lipase ASA Classification/Sedation ASA Classification/Sedation ASA Class: III Emergent: No Risks: Risks, benefits and alternatives explained and patient/family accepted plan for sedation. Patient re-evaluated immediately prior to sedation.
--- NOTE | 2024-05-15 12:27 | WPDHPUPDATE1 ---
History and Physical Update Update Date/Time: 05/15/24 12:27 History and Physical has been reviewed, including an updated exam of the patient. There are NO changes in the patient's condition. Risks, benefits, and alternatives have been discussed and questions answered. Patient agrees to proceed with procedure.
--- NOTE | 2024-05-15 12:31 | P.PCNCC_ITS ---
Cardiac Cath Procedure Note Date of procedure:: 05/15/24 Performing physician:: CATHETERIZATION LABORATORY REPORT Procedure Date: 05/15/2024 Resident Services Supervisor: Dia Enriquez M.D., [facility]? Referring Physician: Maximino Bobby M.D. ? Anesthesia: Versed and Fentanyl were ordered and given in my presence at 12:53, procedure ended at 13:53. Supervision of nurse monitored moderate sedation with Versed and Fentanyl was provided for 60 minutes. Total of Versed 1mg and Fentanyl 50mcg were administered by the Electronic Maintenance Supervisor RN Carlota Nieves. Pre-op Diagnosis: NSTEMI Post-op Diagnosis: 1. OM-2 branch was completely occluded after the ostium (culprit lesion for NSTEMI). S/p successful PCI with MARY x 1 (2.75mm x 15mm Orsiro MARY; inflated to 2.9mm) in the proximal portion of the OM. 2. The first diagonal branch is a small caliber vessel with 90-99% ostial disease. Recommend medical management for this. Procedure(s): 1. Moderate sedation 2. Ultrasound-guided access of the right radial artery 3. Coronary angiography 4. PCI of OM2 Access Site: Right radial artery Brief History and Clinical Indications: Patient is a 53 year old male who is referred for [facility] for NSTEMI. All risks, benefits and alternatives to left heart catheterization with or without percutaneous coronary intervention was discussed at length with the patient. Risk of complications including but not limited to bleeding, infection, arrhythmia, stroke, worsening kidney function, blood loss, groin hematoma, limb loss, emergency coronary artery bypass grafting, and even were discussed with the patient and all questions were answered. The patient understood and wished to proceed. Time out called, patient name, date of , medical record number, allergies, procedure performed, identify Resident Services Supervisor, patient and staff member concurred with accurate data, procedure carried on. Findings: LEFT HEART CATHETERIZATION FINDINGS: 1. Left main: The left main coronary artery is widely patent without any significant obstructive disease. 2. Left anterior descending: Calcifications seen in the proximal-mid LAD. The LAD has diffuse mild disease. No significant obstructive disease. The first diagonal branch is a small caliber vessel with 90-99% ostial disease with moderate disease in the mid portion. 3. Left circumflex: The LCX has luminal irregularities. The OM-1 branch has mild-moderate disease in the mid portion. OM-2 is completely occluded after the ostium. 4. Right coronary artery: The RCA is the dominant vessel. The RCA has diffuse mild disease. The RPDA has luminal irregularities. The RPLV has an angiographically moderate stenosis in the mid portion. Description of Procedure and PCI: Informed consent signed and placed in the chart. Patient transferred to laborer filter plant room. Prepped and draped in usual sterile fashion. 2% lidocaine injected subcutaneously in right wrist area. 22-gauge venipuncture catheter used to access the right radial artery under ult rasound guidance. 6-FR slender sheath placed in right radial artery. Nitroglycerine and Verapamil were given intraarterial through the sheath. Versacore wire advanced under fluoroscopy 5F Tig 4 diagnostic catheter engaged Left Main Coronary Artery. 5F Tig 4 diagnostic catheter engaged Right Coronary Artery Multiple orthogonal angiogram obtained and reviewed Angiomax was used for anticoagulation. 6F EBU 3.0 guide catheter was used to intubate the left main. 0.014 [place] coronary wire was passed in to the distal OM-2 branch with some difficulty traversing the occlusion. The lesion was pre-dilated with a 2.5mm x 15 mm balloon inflated to high TISH. IVUS catheter advanced distal to the lesion. A 2.75 mm x 15 mm Orsiro MARY was successfully deployed into proximal OM-2 (stent inflated to 2.9mm). Intracoronary NTG was administered Coronary wire and guide-catheter were removed Pre-procedure - STEPHANIE 0 flow Post-procedure - STEPHANIE 3 flow No angiographic complications identified. Hemostasis was achieved by application of TR band. Disposition: Floor Plan: The patient will be monitored in the recovery area. DAPT for 1 year followed by ASA indefinitely. The above findings were discussed with the referring physician. Continue aggressive medical therapy and risk factor modification. ? Dia Enriquez M.D. Interventional Cardiology
--- NOTE | 2024-05-15 12:36 | PC.NURSE ---
To Library Cataloging Technician per bed. Report given to MAYRA Krueger.
--- NOTE | 2024-05-15 15:15 | PC.NURSE ---
Pt returned from photographic laboratory supervisor.
[2024-05-15] MEDS: PERFLUTREN LIPID MICROSPHERES 1.5 ML VIAL DILUTED TO 10 ML TOTAL VOLUME IV PUSH (15:30)
[2024-05-15] MEDS: amLODIPine BESYLATE 10 MG TABLET PO (15:51)
[2024-05-15] MEDS: ACETAMINOPHEN 325 MG TABLET 650 MG PO (15:51)
[2024-05-15] MEDS: METOPROLOL TARTRATE 25 MG TABLET PO ×2 (15:51→20:39)
[2024-05-15] MEDS: SODIUM CHLORIDE 0.9% IV 1,000 ML 125 ML IV CONT (15:52)
[2024-05-15] MEDS: hydrALAZINE HCL 20 MG/ML VIAL 10 MG IV PUSH (15:52)
--- NOTE | 2024-05-15 16:22 | IVDEFINITY ---
Prior to administration of IV Definity the patient was educated on the risks and benefits of the imaging enhancing agent including potential adverse side effects. The patient verbalized understanding. Allergies were verified. No exclusion criteria were identified and at least one of the following inclusion criteria were met: 1) physician request, 2) patient technically difficult to image (per the [place] [employer]ocardi[employer] guidelines of two or more segments not discernable within the apical view), or 3) questionable left ventricular function. ?
[2024-05-15 18:06] LABS: Glucose Point of Care 263 mg/dl (65-105)
--- NOTE | 2024-05-15 18:26 | SUR.PHASEII ---
meds for meds to bed delivered.
[2024-05-15 20:25] LABS: Glucose Point of Care 178 mg/dl (65-105)
[2024-05-15] MEDS: ATORVASTATIN 40 MG TABLET 80 MG PO (20:39)
[2024-05-15] MEDS: TICAGRELOR 90 MG TABLET PO (20:39)
[2024-05-16] VITALS (9 sets, daily range): BP systolic 119–130; BP diastolic 63–76; PULSE 74–93; RESP 20; TEMP 36.7–36.9; O2SAT 95–98
[2024-05-16 08:19] LABS: Glucose Point of Care 213 mg/dl (65-105)
[2024-05-16] MEDS: amLODIPine BESYLATE 10 MG TABLET PO (08:40)
[2024-05-16] MEDS: EMPAGLIFLOZIN 25 MG TABLET PO (08:40)
[2024-05-16] MEDS: TICAGRELOR 90 MG TABLET PO (08:40)
[2024-05-16] MEDS: METOPROLOL TARTRATE 25 MG TABLET PO (08:40)
[2024-05-16] MEDS: ACETAMINOPHEN 325 MG TABLET 650 MG PO (08:40)
[2024-05-16] MEDS: LOSARTAN POTASSIUM 100 MG TABLET PO (08:40)
[2024-05-16] MEDS: ASPIRIN 81 MG CHEWABLE TABLET PO (08:40)
--- NOTE | 2024-05-16 11:27 | PM.PNCARD ---
Progress Note: A&P Assessment and Plan (1) Non-ST elevation [place] (NSTEMI): Code(s): I21.4 - Non-ST elevation (NSTEMI) myocardial infarction Status: Acute (2) Mixed hyperlipidemia: Code(s): E78.2 - Mixed hyperlipidemia Status: Acute (3) Essential hypertension: Code(s): I10 - Essential (primary) hypertension Status: Acute Plan 53-year-old man with hypertension and hyperlipidemia presents with chest discomfort who is now status post PCI to occluded OM2 in setting of non ST elevation [place] Non ST-elevation [place] -status post PCI -continue aspirin 81 mg p.o. daily and ticagrelor 90 mg p.o. b.i.d. -metoprolol succinate 50 mg p.o. daily Hypertension -continue losartan 100 mg p.o. daily Hyperlipidemia -continue atorvastatin 80 mg every Patient lives 2 hours away and will follow-up closer to where he lives. He can be discharged today. Subjective Date/time seen: 05/16/24 11:27 Interval history: Denies chest pain. Right wrist and arm without significant tenderness or swelling. No motor or sensory deficits of right hand. Review of Systems Cardiovascular: Cardiovascular: Reports as per HPI Respiratory: Respiratory: Reports as per HPI Exam Const: General: comfortable HENMT: Mouth: Yes moist mucous membranes Eyes: EOM: EOMs intact bilaterally Neck: Neck: no JVD Resp: Effort & Inspection: normal respiratory effort Auscultation: clear to auscultation bilaterally Cardio: Rate: regular rate Rhythm: regular rhythm Neuro: Speech: normal speech Extrem: General: no pedal edema Objective Data Vital Signs Vital Signs: Vital Signs - 24 hr 05/15/24 11:56 05/15/24 12:00 05/15/24 12:00 Temperature 36.8 C Pulse Rate 82 74 Pulse Rate [Right Radial] Respiratory Rate 20 Blood Pressure 146/78 H Pulse Oximetry 97 100 Oxygen Delivery Nasal Cannula Oxygen Flow Rate 4 05/15/24 14:18 05/15/24 14:18 05/15/24 14:30 Temperature Pulse Rate 60 74 Pulse Rate [Right Radial] 60 Respiratory Rate 20 15 Blood Pressure 180/89 H 176/86 H Pulse Oximetry 99 97 Oxygen Delivery Room Air Room Air Oxygen Flow Rate 05/15/24 14:30 05/15/24 14:45 05/15/24 14:45 Temperature Pulse Rate 76 Pulse Rate [Right Radial] 74 76 Respiratory Rate 19 Blood Pressure 177/81 H Pulse Oximetry 99 Oxygen Delivery Room Air Oxygen Flow Rate 05/15/24 15:00 05/15/24 15:00 05/15/24 15:15 Temperature Pulse Rate 63 Pulse Rate [Right Radial] 63 65 Respiratory Rate 16 Blood Pressure 167/81 H Pulse Oximetry 97 Oxygen Delivery Room Air Oxygen Flow Rate 05/15/24 15:15 05/15/24 15:30 05/15/24 15:30 Temperature Pulse Rate 65 68 Pulse Rate [Right Radial] 68 Respiratory Rate 17 18 Blood Pressure 176/81 H 181/84 H Pulse Oximetry 97 97 Oxygen Delivery Room Air Room Air Oxygen Flow Rate 05/15/24 15:45 05/15/24 15:45 05/15/24 15:51 Temperature Pulse Rate 72 78 Pulse Rate [Right Radial] 72 Respiratory Rate 18 Blood Pressure 176/65 H Pulse Oximetry 96 Oxygen Delivery Room Air Oxygen Flow Rate 05/15/24 16:00 05/15/24 16:00 05/15/24 16:00 Temperature Pulse Rate 78 Pulse Rate [Right Radial] 73 Respiratory Rate 18 Blood Pressure 159/84 H Pulse Oximetry 100 100 Oxygen Delivery Room Air Nasal Cannula Oxygen Flow Rate 4 05/15/24 16:30 05/15/24 16:30 05/15/24 17:00 Temperature Pulse Rate 86 Pulse Rate [Right Radial] 86 86 Respiratory Rate 20 Blood Pressure 128/75 Pulse Oximetry 99 Oxygen Delivery Room Air Oxygen Flow Rate 05/15/24 17:00 05/15/24 17:15 05/15/24 17:15 Temperature Pulse Rate 86 96 Pulse Rate [Right Radial] 96 Respiratory Rate 20 15 Blood Pressure 135/75 130/64 Pulse Oximetry 98 98 Oxygen Delivery Room Air Room Air Oxygen Flow Rate 05/15/24 17:30 05/15/24 17:30 05/15/24 17:45 Temperature Pulse Rate 92 89 Pulse Rate [Right Radial] 92 Respiratory Rate 19 20 Blood Pressure 114/64 114/80 Pulse Oximetry 97 98 Oxygen Delivery Room Air Room Air Oxygen Flow Rate 05/15/24 17:45 05/15/24 18:00 05/15/24 18:00 Temperature Pulse Rate 81 Pulse Rate [Right Radial] 89 81 Respiratory Rate 14 Blood Pressure 123/87 Pulse Oximetry 97 Oxygen Delivery Room Air Oxygen Flow Rate 05/15/24 18:00 05/15/24 18:15 05/15/24 18:15 Temperature Pulse Rate 88 66 Pulse Rate [Right Radial] 66 Respiratory Rate 16 Blood Pressure 113/74 Pulse Oximetry 96 Oxygen Delivery Room Air Oxygen Flow Rate 05/15/24 18:30 05/15/24 18:30 05/15/24 18:45 Temperature Pulse Rate 97 82 Pulse Rate [Right Radial] 97 Respiratory Rate 13 15 Blood Pressure 106/80 112/88 Pulse Oximetry 99 98 Oxygen Delivery Room Air Room Air Oxygen Flow Rate 05/15/24 18:45 05/15/24 19:00 05/15/24 19:00 Temperature Pulse Rate 83 Pulse Rate [Right Radial] 82 82 Respiratory Rate 16 Blood Pressure 123/87 Pulse Oximetry 98 Oxygen Delivery Room Air Oxygen Flow Rate 05/15/24 19:50 05/15/24 20:00 05/15/24 20:00 Temperature 36.9 C Pulse Rate 83 84 84 Pulse Rate [Right Radial] Respiratory Rate 20 20 Blood Pressure 117/71 Pulse Oximetry 97 97 Oxygen Delivery Room Air Oxygen Flow Rate 05/15/24 20:39 05/15/24 21:00 05/15/24 22:00 Temperature 36.9 C 37.0 C Pulse Rate 78 73 88 Pulse Rate [Right Radial] Respiratory Rate 20 20 Blood Pressure 121/95 H 118/66 Pulse Oximetry 97 95 Oxygen Delivery Oxygen Flow Rate 05/15/24 22:00 05/15/24 23:31 05/16/24 00:00 Temperature 36.8 C Pulse Rate 78 65 84 Pulse Rate [Right Radial] Respiratory Rate 20 20 Blood Pressure 132/74 Pulse Oximetry 97 97 Oxygen Delivery Room Air Oxygen Flow Rate 05/16/24 00:00 05/16/24 02:00 05/16/24 04:00 Temperature Pulse Rate 84 78 74 Pulse Rate [Right Radial] Respiratory Rate 20 Blood Pressure Pulse Oximetry 97 Oxygen Delivery Room Air Oxygen Flow Rate 05/16/24 04:00 05/16/24 05:18 05/16/24 06:00 Temperature 36.9 C Pulse Rate 74 80 78 Pulse Rate [Right Radial] Respiratory Rate 20 Blood Pressure 130/70 Pulse Oximetry 95 Oxygen Delivery Oxygen Flow Rate 05/16/24 08:00 05/16/24 08:00 05/16/24 08:00 Temperature 36.7 C Pulse Rate 91 84 Pulse Rate [Right Radial] Respiratory Rate 20 Blood Pressure 121/76 Pulse Oximetry 98 98 Oxygen Delivery Room Air Oxygen Flow Rate 05/16/24 08:40 05/16/24 10:00 Temperature Pulse Rate 93 81 Pulse Rate [Right Radial] Respiratory Rate Blood Pressure Pulse Oximetry Oxygen Delivery Oxygen Flow Rate Intake/Output Intake/Output: Intake & Output 05/13/24 05/14/24 05/15/24 05/16/24 23:59 23:59 23:59 23:59 Intake Total 414.3 2240 Output Total 1500 1300 Balance -1085.7 940 Meds/Results Medications: Active Medications Generic Name Dose Route Start Last Admin Trade Name Freq PRN Reason Stop Dose Admin Acetaminophen 650 mg 05/15/24 14:52 05/16/24 08:40 Acetaminophen 325 Mg Tablet PO 650 mg Q6H PRN Administration Headache Amlodipine Besylate 10 mg 05/15/24 14:00 05/16/24 08:40 Amlodipine Besylate 10 Mg Tablet PO 10 mg DAILY [place] Administration Aspirin 81 mg 05/15/24 08:00 05/16/24 08:40 Aspirin 81 Mg Chewable Tablet PO 81 mg DAILY@0800 [place] Administration Atorvastatin Calcium 80 mg 05/15/24 21:00 05/15/24 20:39 Atorvastatin 40 Mg Tablet PO 80 mg HS [place] Administration Baclofen 10 mg 05/15/24 07:10 Baclofen 10 Mg Tablet PO TID PRN PAIN IN THORASIC SPINE Dextrose 12.5 gm 05/15/24 07:07 Dextrose 50% 25 Gm/50 Ml Syringe IV PUSH PRN PRN Hypoglycemia Protocol Empagliflozin 25 mg 05/15/24 09:00 05/16/24 08:40 Empagliflozin 25 Mg Tablet PO 25 mg DAILY [place] Administration Glucagon 1 mg 05/15/24 07:07 Glucagon For Inj 1 Mg Vial IM PRN PRN Hypoglycemia Protocol Glucose 15 gm 05/15/24 07:07 Glucose Oral Gel 15 Gm Of Glucse In 37.5 Gm Tube PO PRN PRN Hypoglycemia Protocol Hydralazine HCl 10 mg 05/15/24 13:57 05/15/24 15:52 Hydralazine Hcl 20 Mg/Ml Vial IV PUSH 20 mg Q8H PRN Administration Blood Pressure - High Dextrose 1,000 mls @ 100 mls/hr 05/15/24 07:07 Dextrose 5% 1,000 Ml IVPB PRN PRN Hypoglycemia Protocol Insulin Aspart 2 - 5 units 05/16/24 08:00 05/16/24 08:42 Insulin Aspart (*Bkc) 100 Units/Ml SUB-Q Not Given TIDWM [facility] Protocol Insulin Aspart 2 - 5 units 05/16/24 21:00 Insulin Aspart (*Bkc) 100 Units/Ml SUB-Q HS [facility] Protocol Losartan Potassium 100 mg 05/15/24 09:00 05/16/24 08:40 Losartan Potassium 100 Mg Tablet PO 100 mg DAILY [place] Administration Metoprolol Succinate 50 mg 05/17/24 09:00 Metoprolol Succinate Ext Rel 50 Mg Tabcr PO QAM [facility] Morphine Sulfate 4 mg 05/14/24 21:59 05/15/24 10:57 Morphine Sulfate (*Crx) 4 Mg/Ml Inj IV PUSH 4 mg Q2H PRN Administration Pain Rated 7-10 Nitroglycerin 1 inch 05/15/24 00:00 05/16/24 04:50 Nitroglycerin Ointment 1 Inch Dose TRANSDERM Not Given Q6HR [facility] Ondansetron HCl 4 mg 05/14/24 21:59 05/15/24 09:26 Ondansetron Inj 4 Mg/2 Ml Vial IV PUSH 4 mg Q4H PRN Administration Nausea Ticagrelor 90 mg 05/15/24 21:00 05/16/24 08:40 Ticagrelor 90 Mg Tablet PO 90 mg Q12HR [place] Administration Radiology Results: ITS Impressions Chest X-Ray 05/14/24 20:02 IMPRESSION: No focal infiltrate or effusion. Labs Labs: Laboratory Results - last 24 hr 05/15/24 05/15/24 05/15/24 11:59 18:04 20:00 POC Capillary Glucose 150 H 263 H 178 H 05/16/24 08:17 POC Capillary Glucose 213 H
[2024-05-16 11:37] LABS: Glucose Point of Care 131 mg/dl (65-105)
--- NOTE | 2024-05-16 11:48 | PM.DS ---
DS: Admitting Diagnosis Discharge Date 05/16/24 Admitting Diagnosis Chest pain DS: Discharge Diagnosis Discharge Diagnosis (1) Non-ST elevation [place] (NSTEMI): Code(s): I21.4 - Non-ST elevation (NSTEMI) myocardial infarction Status: Acute (2) Hypertensive urgency: Code(s): I16.0 - Hypertensive urgency Status: Acute (3) Mixed hyperlipidemia: Code(s): E78.2 - Mixed hyperlipidemia Status: Acute (4) Type 2 diabetes mellitus with hyperglycemia, without long-term current use of insulin: Code(s): E11.65 - Type 2 diabetes mellitus with hyperglycemia Status: Acute Plan 53-year-old male with a past medical history of obesity, type 2 diabetes mellitus, dyslipidemia and essential hypertension who presented to the ER via EMS from a local hotel room that he is staying in due to chest pain. The patient reported that when he woke up and had some pain down his right arm in vague pain across his chest that radiated to his right arm. The pain was initially mild to moderate in nature. He reported that is arm felt heavy. 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 He reports that throughout the day the pain was waxing and waning in nature but never completely resolved. He described the pain as a tightness but denies a sensation of heaviness. Has job then dropped him off at the hot. At that time he noticed that as he was laying there the pain seemed to be come more intense. The pain is 7/10 in intensity. The patient reports the pain is pressure-like in nature. He denies any prior cardiac history. When EMS arrived [facility] the [facility] a patient's blood pressures were in the 180s over 110. The patient reports that when he goes to his doctor's visits usually his blood pressures are initially high. But on repeat checks before he leaves the doctor's office his blood pressures are usually in the 130s to 140s but he can never remember what is diastolic blood pressures are. He reports that his last A1c was little bit high around 8. He reports that his fasting glucoses have been ranging between 130 and 160. He has been trying to be more consistent with checking his glucoses since his last doctor's visit 2 weeks ago. His last lipid panel which was performed within last 2 weeks at a total cholesterol of 247 LDL of 152 HDL of 42 triglycerides of 260 VLDL of 52 cholesterol/HDL of 5.9 and LDL/HDL of 3.6. He has had increased stressors at home. His mother recently of pancreatic cancer. His oldest son is getting ready to join the and his next oldest child is getting radial leave for college. The patient reports that after he had COVID he has subsequently lost about 40 lb. Since he has lost weight he does not snore quite is loudly as he used to. He has a crowded posterior oropharynx but denies ever being tested for obstructive sleep apnea. He denies any complications due to his diabetes such as neuropathy or retinopathy. During the course of my evaluation the patient did acutely become nauseated. However the nausea GERD about the time he had resolution of his chest pain. The patient had initially received nitroglycerin and heparin drip in the ER as well as 1 dose of morphine. This low seemed to have little effect on his pain. He he did have nitropaste place which seemed to help his pain and which significantly improved his blood pressures. Prior to the application of the nitropaste the patient's blood pressures had been ranging between 180s to 190s systolic over 90s to 112 diastolic. The patient did receive a full-dose aspirin in route to the hospital. He was hypertensive in the ED as noted above. Laboratory studies showed WBC of 8.5 hemoglobin of 16.3 came panel was unremarkable. Initial troponin came back elevated at 1.9. Lipase was 249 normal limit. EKG with no ST-T changes noted. Subsequent troponin continue to elevate to 3.5-5 0.1-5.9. Patient has been started on heparin drip for non ST elevation MA. Cardiology has been consulted. Continue on aspirin 81 mg daily also on atorvastatin 80 mg at bedtime. Hypertension: Blood pressure control with losartan 100 mg daily. Type 2 diabetes on Ozempic at home. Currently on sliding scale insulin. DVT prophylaxis-heparin drip Code status DS: Summary Hospital Course Hospital Course: patient presented with CP and NSTEMI, had cardiac cath showed mild to moderate CAD, cardiology recommended aggressive medical management, will follow up with his primary care provider. clinically stable, will discharge patient today. Time Spent with Patient Time attestation: Total time spent providing and/or coordinating discharge services: Exam Narrative: Patient is comfortable, NAD HEENT: eyes are clear and none icteric LUNGS: Bilateral poor air entry with rhonchi and wheezing HEART: RR S1S2 ABD: BS+, Soft and nontender Lower extremities: no edema SKIN: nonjaundiced Neuro: grossly intact. DS: Data Data Completed and Pending Labs on day of discharge: Labs from last 24 hours 05/16/24 05/16/24 05/15/24 11:32 08:17 20:00 POC Capillary Glucose 131 H 213 H 178 H 05/15/24 05/15/24 18:04 11:59 POC Capillary Glucose 263 H 150 H Discharge Plan Discharge Attending physician on discharge: Tami Pritchett Consulting providers: Shaheen Bobby; Dia Enriquez; Landon Merchant; Haroon Hdz; Carlota Burks Discharging Clinician: Katie Cotton Patient Disposition: Home, Self-Care Activity: as tolerated Diet: heart healthy Discharge Instructions: patient to follow discharge instruction from his manager talent acquisition and follow up with his primary manager talent acquisition and primary care provider as soon as possible. patient is instructed if any symptoms redevelop to go to nearest ER. [facility] [address] [place], [place] [id number] DISCHARGE INSTRUCTIONS - POST PCI Activity 1. No driving until 05/16/24. 2. No lifting, pushing or pulling more than 10 pounds for 1 week. 3. No strenuous exercise or activity (including sexual activity) until you are released to do so. 4. May shower but no tub baths or swimming pool for 1 week. Avoid commercial hot tubs. They are too hot. Medications DO NOT STOP YOUR MEDICATIONS ONLY YOUR SALES REPRESENTATIVE GIRLS' APPAREL CAN STOP THE FOLLOWING MEDICATIONS - PLEASE CALL THE OFFICE WITH QUESTIONS. *Aspirin *Ticagrelor (Brilinta) *Atorvastatin *Lisinopril or ARB *Metoprolol tartrate or succinate *Clopidogrel (Plavix) *Prasugrel (Effient) Important Reminders 1. Keep your stent card in your wallet at all times 2. Follow a heart healthy diet paying extra attention to cholesterol and fats. 3. Stay hydrated. 4. If you have chest pain unrelieved by rest or nitroglycerin (if prescribed) call 911 immediately. 5. If you miss one dose of Brilinta (if prescribed) take a tablet at the next time due. If you miss 2 doses take a tablet when you remember and resume at the next time due. *For any other questions please call the office at [phone]. Office hours are 8AM 4:30PM Monday through Monday. Patient Instructions: Antibiotic Form, Chest Pain (GEN), Heart Catheterization (DC), Blood Thinners (GEN) Patient Language: Kiswahili Stand Alone Forms: General Discharge Information Follow-up/Referrals: Shaheen Bobby MD [Physician] - UNKNOWN,DOCTOR [Primary Care Provider] - Discharge Medications: New Brilinta 90 mg tablet 90 mg PO Q12H Qty: 180 3RF aspirin [Children's Aspirin] 81 mg Tablet,Chewable 81 mg PO DAILY@0800 Qty: 30 0RF metoprolol succinate 50 mg Tablet Extended Release 24 Hr 50 mg PO QAM Qty: 30 0RF amlodipine 10 mg Tablet 10 mg PO DAILY Qty: 30 0RF Continued atorvastatin 20 mg tablet 20 mg PO HS baclofen 10 mg tablet 10 mg PO .tid prn losartan 100 mg tablet 100 mg PO DAILY Jardiance 25 mg tablet 25 mg PO DAILY Ozempic 0.25 mg or 0.5 mg (2 mg/3 mL) pen injector 0.5 mg SUBCUT WEEKLY Date of admission: 05/14/24 21:59 Primary Care Provider: UNKNOWN,DOCTOR Admitting Provider: Tami Pritchett Attending physician on admission: Katie Cotton Condition: Stable
== END 2024-05-16 12:29 | disposition home or self-care (01) | DRG 322 ==
LOC: ANHED 20:20 → ANHIMU 05-15 01:02
PROVIDERS: Internal Medicine; Admitting Provider Internal Medicine; Emergency Provider Emergency Medicine; Visit Provider Family Medicine
PROC: 027034Z Dilation of Coronary Artery, One Artery with Drug-eluting Intraluminal Device, Percutaneous Approach (ICD-10-PCS; CPT 93454; principal; 2024-05-15 13:00)
PROC: 027034Z Dilation of Coronary Artery, One Artery with Drug-eluting Intraluminal Device, Percutaneous Approach (ICD-10-PCS; CPT 92928; 2024-05-15 13:00)
PROC: 027034Z Dilation of Coronary Artery, One Artery with Drug-eluting Intraluminal Device, Percutaneous Approach (ICD-10-PCS; 2024-05-15 13:00)
DX: I21.4 Non-ST elevation (NSTEMI) myocardial infarction (principal); I16.0 Hypertensive urgency; E11.65 Type 2 diabetes mellitus with hyperglycemia; E78.2 Mixed hyperlipidemia; I25.10 Atherosclerotic heart disease of native coronary artery without angina pectoris; E66.9 Obesity, unspecified; Z68.38 Body mass index [BMI] 38.0-38.9, adult; Z86.16 Personal history of COVID-19
CPT/HCPCS: 36415; 71046; 80048; 80053; 82948; 83690; 83735; 84100; 84484; 85025; 85610; 85730; 92978; 93005; 93454; 96374; 96375; 96376; 99291; A9270; C1725; C1753; C1769; C1874; C1887; C1894; C8929; C9600; J0360; J0583; J1644; J2003; J2250; J2270; J2305; J2405; J3010; J7030; J7040; Q9957